=== PATIENT | female | born 1965 | race Caucasian/White ===

== ENCOUNTER → 2021-06-06 | Outpatient (CLI) | payer OTHER ==
[~2021-06-06] MED LIST: CARDIZEM120 MG; METFORMIN HCL500 MG; ZANTAC300 MG
== END | disposition home or self-care (01) ==
LOC: SONOGRAMA 09:37
PROVIDERS: ATTEND Pathology Anatomic Pathology & Clinical Pathology
DX: E04.1 Nontoxic single thyroid nodule (principal)

== ENCOUNTER 2021-09-27 07:20 | Outpatient (CLI) | payer OTHER | END 2021-09-27 07:21 | disposition home or self-care (01) | LOC: RX STUDY 07:20 | PROVIDERS: ATTEND Internal Medicine Gastroenterology | DX: R13.10 Dysphagia, unspecified (principal) ==